=== PATIENT | male | born 1940 | race Caucasian/White ===

== ENCOUNTER 2025-04-26 19:09 | Inpatient (IN) | payer MEDICARE, SELFPAY ==
[2025-04-26 15:05] VITALS: BMI 23.8
[2025-04-26 15:17] VITALS: BP 130/79
[2025-04-26 15:18] VITALS: BP 130/79
--- NOTE | 2025-04-26 15:35 | ED.GENMED ---
History of Present Illness
<Hayden Mclean PA-C - Last Filed: 04/26/25 19:10>
General
Chief Complaint: Change in Mental Status
Source: patient, records, half-way and half-way records
Time Seen by Provider: 04/26/25 15:06
History of Present Illness
History of Present Illness:
84-year-old male with past medical history of AAA, routine monitoring, chronic ambulatory dysfunction, mild CKD presenting to the emergency department for evaluation of ecchymosis and increased pain to the right lower extremity that has been
gradually worsening for the last 1 to 2 weeks. Patient reportedly had outpatient vascular ultrasound which was negative for DVT as well as x-ray imaging which was negative for any fracture. Patient unable to elaborate on any further history
secondary to his known baseline mild dementia. 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
increasing difficulty doing so and noticed worsening ecchymosis along the lateral aspect of the foot/ankle and toes which is what prompted them to send him to the ER today. Based off patient's medication list it appears that he is on daily Plavix.
Past History
<Hayden Mclean PA-C - Last Filed: 04/26/25 19:10>
Past History
ED Past Medical History: Renal failure and Other (AAA)
Social History
Tobacco: Non-smoker
Alcohol: None
Drug: None
Personal:
Living: half-way
Review of Systems
<Hayden Mclean PA-C - Last Filed: 04/26/25 19:10>
Review of Systems
All Other Systems: ROS reviewed and negative except as documented in HPI and ROS
Phy Exam
<Hayden Mclean PA-C - Last Filed: 04/26/25 19:10>
Physical Exam
Physical Exam:
GENERAL: Alert , in no apparent distress, pleasant but somewhat confused, repetitive questioning
HEAD: Normocephalic atraumatic
EYE: conjunctiva clear
NECK: Supple
ENT: o/p clr, mmm.
CARDIAC: Regular rate and rhythm
LUNGS: Clear breath sounds bilaterally, no acute respiratory distress, no wheezes/rales/rhonchi
NEUROLOGICAL: Alert and oriented
SKIN: Warm and dry, ecchymosis to 2-5th toes extending into lateral foot and ankle. slightly dusky in appearance, cool to touch. LROM but unclear if this is chronic or new as patient unable to tell us
MUSCULOSKELETAL: Cool to touch. Cap refill ~ 3 seconds bilateral. Unable to palpate DP/PT pulses bilateral. Palpable popliteal and femoral pulses. I was able to appreciate weak DP/PT pulses with doppler
PSYCH: Normal and appropriate interaction.
Scores
<Hayden Mclean PA-C - Last Filed: 04/26/25 19:10>
Heart Failure Risk
Heart Failure Risk Score: Not Applicable
Heart Score for Chest Pain Patients
STEMI patient?: Not applicable
Withdrawal Assessment of Alcohol
Withdrawal Assessment Completed?: Not applicable
Course
<Hayden Mclean PA-C - Last Filed: 04/26/25 19:10>
Orders/Labs/Results
Orders:
Orders
04/26/25 15:30
Lower Ext Arterial & MING US [US Periph Art LOWER Ext w MING] Urgent
Comment:
Reason For Exam: LLE ecchymosis, cool to touch, increased pain
04/26/25 15:32
Type+Screen Urgent
Complete Blood Count/With Diff Urgent
Comprehensive Metabolic Panel Urgent
PTT Urgent
Prothrombin Time Urgent
04/26/25 18:08
Vascular Surgery Consult Routine
Consulting Provider: Adan Ochoa
Was physician already notified: Yes
04/26/25 18:09
Admit/Transfer Patient As Directed
Co-Sign Provider:
Level of Care: Inpatient admission
Assign to:: Medical/Surgical
Physician / Group: ajith ortiz
Diagnosis: RLE PAD
Reason for Hospitalization: RLE PAD
Expected length of stay greater than two midnights?: Yes
ELOS- Estimated Length of Stay in days: 2
I certify the patient meets the requirements for IP care: Yes
PRN Pain Medication Management As Directed
May give lesser potent ordered pain med per pt: Yes
preference::
Protocol:: Medication orders for pain may be administered in a
manner that supports deferring to patient preference
when the pt is:
- Requesting an ordered lesser potent pain medication.
Least to most potent pain medications are defined
as: acetaminophen < NSAID < tramadol < opioids
(morphine, oxycodone, hydromorphone).
- Requesting a lesser dose of the same medication IF
ORDERED.
- Requesting a less intrusive route of administration
if both routes are prescribed by the provider (PO <
IV).
04/26/25 18:11
Code Status As Directed
Resuscitation Status: Do not resuscitate
Reached after discussion with pt or family/Healthcare POA: Yes
DNR Bracelet Application ONCE
Abnormal Lab Results
04/26/25
15:32
RBC 3.89 L 10^6/uL
(4.70-6.10)
Hgb 11.1 L g/dL
(13.0-18.0)
Hct 34.2 L %
(39.0-52.0)
MCHC 32.5 L g/dL
(33.0-37.0)
Absolute Monos (auto) 0.7 H 10^3/uL
(0.1-0.6)
Monocytes % 9.9 H %
(1.7-9.3)
PT 14.8 H Sec
(11.4-14.6)
BUN 42 H mg/dl
(9-20)
Creatinine 1.5 H mg/dL
(0.7-1.3)
04/26/25 15:32
04/26/25 15:32
Vital Signs
Initial and Last Documented VS:
Initial Vital Signs
Pulse Ox
97
04/26/25 15:16
Last Documented Vital Signs
Temp Pulse Resp BP Pulse Ox
98.0 F 74 16 130/79 96
04/26/25 15:18 04/26/25 18:00 04/26/25 18:00 04/26/25 15:18 04/26/25 17:45
<Melvin Valera MD - Last Filed: 04/26/25 18:44>
Orders/Labs/Results
Orders:
Orders
04/26/25 15:30
Lower Ext Arterial & MING US [US Periph Art LOWER Ext w MING] Urgent
Comment:
Reason For Exam: LLE ecchymosis, cool to touch, increased pain
04/26/25 15:32
Type+Screen Urgent
Complete Blood Count/With Diff Urgent
Comprehensive Metabolic Panel Urgent
PTT Urgent
Prothrombin Time Urgent
04/26/25 18:08
Vascular Surgery Consult Routine
Consulting Provider: Adan Ochoa
Was physician already notified: Yes
04/26/25 18:09
Admit/Transfer Patient As Directed
Co-Sign Provider:
Level of Care: Inpatient admission
Assign to:: Medical/Surgical
Physician / Group: ajith ortiz
Diagnosis: RLE PAD
Reason for Hospitalization: RLE PAD
Expected length of stay greater than two midnights?: Yes
ELOS- Estimated Length of Stay in days: 2
I certify the patient meets the requirements for IP care: Yes
PRN Pain Medication Management As Directed
May give lesser potent ordered pain med per pt: Yes
preference::
Protocol:: Medication orders for pain may be administered in a
manner that supports deferring to patient preference
when the pt is:
- Requesting an ordered lesser potent pain medication.
Least to most potent pain medications are defined
as: acetaminophen < NSAID < tramadol < opioids
(morphine, oxycodone, hydromorphone).
- Requesting a lesser dose of the same medication IF
ORDERED.
- Requesting a less intrusive route of administration
if both routes are prescribed by the provider (PO <
IV).
04/26/25 18:11
Code Status As Directed
Resuscitation Status: Do not resuscitate
Reached after discussion with pt or family/Healthcare POA: Yes
DNR Bracelet Application ONCE
Abnormal Lab Results
04/26/25
15:32
RBC 3.89 L 10^6/uL
(4.70-6.10)
Hgb 11.1 L g/dL
(13.0-18.0)
Hct 34.2 L %
(39.0-52.0)
MCHC 32.5 L g/dL
(33.0-37.0)
Absolute Monos (auto) 0.7 H 10^3/uL
(0.1-0.6)
Monocytes % 9.9 H %
(1.7-9.3)
PT 14.8 H Sec
(11.4-14.6)
BUN 42 H mg/dl
(9-20)
Creatinine 1.5 H mg/dL
(0.7-1.3)
04/26/25 15:32
04/26/25 15:32
Vital Signs
Initial and Last Documented VS:
Initial Vital Signs
Pulse Ox
97
04/26/25 15:16
Last Documented Vital Signs
Temp Pulse Resp BP Pulse Ox
98.0 F 74 16 130/79 96
04/26/25 15:18 04/26/25 18:00 04/26/25 18:00 04/26/25 15:18 04/26/25 17:45
<Hayden Mclean PA-C - Last Filed: 04/26/25 19:10>
MDM/Problems Addressed
Differential Diagnosis Includes:
PAD/Arterial occlusion
PVD
DVT
Fracture
Cellulitis
Compartment syndrome
MDM/Problems Addressed:
84-year-old male presenting to the ER for evaluation of increased pain reported in the right lower extremity, now with worsening ecchymosis. Exam reveals cool to the touch bilateral lower extremities, difficult to palpate pulses but able to Doppler
weak DP and PT pulses bilaterally. Patient unable to give much history but half-way confirms there was no known trauma to the area and patient had negative venous ultrasound for DVT as well as x-rays for any fracture within the last week and a
half. Given the presentation will attempt to obtain arterial studies, vascular consult. Labs ordered. Disposition pending
<Hayden Mclean PA-C - Last Filed: 04/26/25 19:10>
*Radiology
Radiology exam reviewed: radiology read reviewed
*Pulse Oximetry
SaO2: 97
Oxygen Mode of Delivery: Room air
Patient hypoxic: no
*Critical Care Note
Total Time (30-74mins, 75-104mins- exclusive of procedures): Not Applicable
<Hayden Mclean PA-C - Last Filed: 04/26/25 19:10>
Patient Management
Discussion with other providers: Hospitalist and User Interface Developer
Escalation/DeEscalation of care consider admission/obs:
Case was reviewed with vascular team who is concerned for terminal cyanosis of the right lower extremity and that patient amputation for this. They will see the patient in consult, recommend admission to hospitalist team. I did discuss the case
with patient's son who is power of commonwealth attorney. Agrees with plan for admission and will discuss further options and treatment with hospitalist team as well as vascular team. Hospitalist team aware and accepts for admission.
ED Attending Note
<Hayden Mclean PA-C - Last Filed: 04/26/25 19:10>
-
Portions of this chart may have been created with voice recognition software.� Occasional wrong word or��sound alike� substitutions may have occurred due to the inherent limitations of voice recognition software.
<Melvin Valera MD - Last Filed: 04/26/25 18:44>
ED Attending Note
Patient seen and examined by attending physician: Yes
ED Attending Note:
Patient with history of dementia, presents to ED from half-way secondary to confusion along with discoloration noted of his right toes, which has been ongoing for the past 1 week. Upon arrival, patient is alert and awake, but pleasantly
confused. Patient does report seeing discoloration of his foot for 'long period of time'. Denies trauma. Denies loss of sensation or weakness. Denies recent illness.
Physical Exam
General: no apparent distress, not acutely ill. afebrile
Head: nc/at. eomi
Neck: supple. normal range of motion
Heart: s1/s2 regular rate and rhythm
Lungs: no acute respiratory distress. clear bilaterally
Abdomen: normal bowel sounds. not tender.
Neuro: alert and oriented x 2. no focal neurological deficits
Skin: right foot: Discoloration of 2nd, 3rd, and 4th toe noted along with coldness sensation. Dorsalis pedis pulses detected via Doppler, but faint.
Psychiatric: well kept. interactive and cooperative
Extremities: no edema. no calf tenderness.
Vascular surgery notified via [place] text. Lower extremity arterial study ordered. Patient will be admitted for further evaluation and treatment.
Discharge Plan
Departure
Patient Disposition: Admit
Date of Disposition: 04/26/25
Time of Disposition: 16:40
Presentation/result/management discussed w/ accepting /: Hospitalist
Discharge Problem:
PAOD (peripheral arterial occlusive disease)
Prescriptions:
No Action
atorvastatin [Lipitor] 40 mg Tablet
40 mg PO QPM
lidocaine 4 % Adhesive Patch,Medicated
1 patch TOPICAL DAILYPRN PRN (Reason: left knee)
polyethylene glycol 3350 [Miralax] 17 gram Powder In Packet
17 g PO DAILYPRN PRN (Reason: constipation)
loperamide 2 mg Tablet
2 mg PO Q6HPRN PRN (Reason: diarrhea)
clopidogrel [Plavix] 75 mg Tablet
75 mg PO DAILY
aspirin 81 mg Tablet,Delayed Release (Dr/Ec)
81 mg PO DAILY
acetaminophen [Tylenol Extra Strength] 500 mg Tablet
1,000 mg PO Q8HPRN PRN (Reason: mild pain)
pantoprazole [Protonix] 40 mg Tablet,Delayed Release (Dr/Ec)
40 mg PO DAILY
ergocalciferol (vitamin D2) 1,250 mcg (50,000 unit) Capsule
1,250 mcg PO TH
losartan-hydrochlorothiazide 50-12.5 mg Tablet
1 tab PO DAILY
doxycycline hyclate 20 mg Tablet
20 mg PO BID
Rx Instructions:
for 90 days until 06/26/25
loratadine 10 mg Tablet
10 mg PO DAILY
metoprolol tartrate 25 mg Tablet
12.5 mg PO BID
chlorhexidine gluconate [Peridex] 0.12 % Mouthwash
15 ml BUCCAL BID
ranolazine [Ranexa] 500 mg Tablet Extended Release 12 Hr
500 mg PO BID
Referrals:
Tramontana,Akash., DO [Family Provider, Internal Medicine]
Interventions
Interventions:
*Risk Screen - Suicide Last Done: 04/26/25 15:05
*General Assessment Last Done: 04/26/25 15:05
*Neglect/Abuse Screening Last Done: 04/26/25 15:05
*ED- Fall Risk Assessment Last Done: 04/26/25 15:05
*ED COVID-19 Vaccine History Last Done: 04/26/25 15:05
*ED Influenza Vaccine History Last Done: 04/26/25 15:05
ED- Neurological Assessment Last Done: 04/26/25 15:05
Discharge Date and Time
Print Language: GERMAN
[2025-04-26 15:46] LABS: Hematocrit 34.2 % (39.0-52.0); Hemoglobin 11.1 g/dL (13.0-18.0); Mean Corp Hgb Conc. 32.5 g/dL (33.0-37.0); Mean Corpuscular Volume 87.9 fL (80.0-94.0); Nucleated Red Blood Cells % 0 % (-); Platelet Count 167 10^3/uL (130-400); Red Cell Dist. Width 13.5 % (11.5-14.5)
[2025-04-26 15:52] LABS: INR 1.11; PT 14.8 Sec (11.4-14.6)
[2025-04-26 15:53] LABS: APTT 33.4 Sec (23.4-35.0)
[2025-04-26 15:58] LABS: ALT (SGPT) 15 U/L (0-50); AST (SGOT) 26 U/L (17-59); Albumin 4.1 g/dl (3.5-5.0); Alkaline Phosphatase 78 U/L (38-126); Blood Urea Nitrogen 42 mg/dl (9-20); Calcium 8.7 mg/dl (8.4-10.2); Carbon Dioxide 26 mmol/L (22-30); Chloride 107 mmol/L (98-107); Estimated Creatinine Clearance 31 ml/min; Glucose 96 mg/dl (70-99); Potassium 3.8 mmol/L (3.5-5.1); Sodium 141 mmol/L (135-145); Total Protein 7.5 g/dl (6.3-8.2); eGFR 45.34
--- NOTE | 2025-04-26 17:46 | HPS.HSE ---
Family Physician
-
Family Physician: Ramiro Ponce, DO
Chief Complaint
-
RLE pain/ecchymosis
History of Present Illness
84-year-old male with a past medical history of dementia, AAA, CAD, hypertension, GERD, CKD, chronic ambulatory dysfunction, and unsteady gait who was sent from [facility] for worsening right lower extremity pain and ecchymosis.
Patient states that his right lower extremity is chronically deformed, he denies trauma. He reports that he had an outpatient vascular ultrasound which was negative for DVT, and also had outpatient x-rays which was negative for fracture. Patient
normally ambulates with a walker. custodial sent him to the ER as he had increasing pain with ambulation and worsening ecchymosis along the lateral aspect of the right foot. Currently, he denies RLE pain at rest, denies chest pain, denies
shortness of breath. Denies nausea, denies vomiting. No constipation, no diarrhea. No fever.
Medical History
Past Medical History
Past Medical History: Reports Other
Additional Past Medical History:
AAA
CAD
Dementia
[place]/NSTEMI
Iron def anemia
Unstable gait
Essential hypertension
Gastroesophageal reflux disease
Chronic ambulatory dysfunction
Chronic kidney disease
Past Surgical History: Reports Other
Additional Past Surgical History:
Cyst removal on leg
Social History
Tobacco: Non-smoker
Alcohol: None
Drug: None
Personal:
Living: Penitentiary
Family History
Family History: Not pertinent
Allergies / Home Medications
Allergies reflects when Allergies were last updated in [employer].
Home Medications with original date entered in [employer]
Allergy/Medication List:
Allergies
Allergy/AdvReac Type Severity Reaction Status Date / Time
clarithromycin (From Biaxin) Allergy Unknown Verified 04/26/25 15:37
Home Medications Table - record
�Medication �Instructions �Recorded �Confirmed
acetaminophen 500 mg tablet 1,000 mg PO Q8HPRN PRN mild pain 04/26/25 04/26/25
(Tylenol Extra Strength)
aspirin 81 mg tablet,delayed 81 mg PO DAILY 04/26/25 04/26/25
release
atorvastatin 40 mg tablet (Lipitor) 40 mg PO QPM 04/26/25 04/26/25
chlorhexidine gluconate 0.12 % 15 ml buccal BID 04/26/25 04/26/25
mouthwash (Peridex)
clopidogrel 75 mg tablet (Plavix) 75 mg PO DAILY 04/26/25 04/26/25
doxycycline hyclate 20 mg tablet 20 mg PO BID 04/26/25 04/26/25
ergocalciferol (vitamin D2) 1,250 1,250 mcg PO TH 04/26/25 04/26/25
mcg (50,000 unit) capsule
lidocaine 4 % topical patch 1 patch topical DAILYPRN PRN left 04/26/25 04/26/25
knee
loperamide 2 mg tablet 2 mg PO Q6HPRN PRN diarrhea 04/26/25 04/26/25
loratadine 10 mg tablet 10 mg PO DAILY 04/26/25 04/26/25
losartan 50 mg-hydrochlorothiazide 1 tab PO DAILY 04/26/25 04/26/25
12.5 mg tablet
metoprolol tartrate 25 mg tablet 12.5 mg PO BID 04/26/25 04/26/25
pantoprazole 40 mg tablet,delayed 40 mg PO DAILY 04/26/25 04/26/25
release (Protonix)
polyethylene glycol 3350 17 gram 17 g PO DAILYPRN PRN constipation 04/26/25 04/26/25
oral powder packet (Miralax)
ranolazine 500 mg tablet,extended 500 mg PO BID 04/26/25 04/26/25
release,12 hr
Review of Systems
-
Unable to obtain full review of systems at this time due to: Dementia
Physical Exam
Vital Signs
Vital Signs
Temp Pulse Resp BP Pulse Ox
98.0 F 69 17 130/79 96
04/26/25 15:18 04/26/25 17:15 04/26/25 17:15 04/26/25 15:18 04/26/25 17:15
Physical Exam
General: No Apparent Distress
HEENT: NormoCephalic, Anicteric and Moist mucous membranes
Respiratory: Clear
Cardiac: S1/S2 and Regular Rhythm
GI: Soft, Non Tender, Non Distended and Normal Bowel Sounds
Musculoskeletal: Other (Right lower extremity shortened and externally rotated, ecchymosis of right toes and lateral foot, severely diminished DP/PT pulses bilateral)
Psych: Calm
Laboratory Results
-
04/26/25 15:32
04/26/25 15:32
Laboratory Results
PT 14.8 Sec (11.4-14.6) H 04/26/25 15:32
INR 1.11 04/26/25 15:32
APTT 33.4 Sec (23.4-35.0) 04/26/25 15:32
Total Bilirubin 1.1 mg/dl (0.2-1.3) 04/26/25 15:32
AST 26 U/L (17-59) 04/26/25 15:32
ALT 15 U/L (0-50) 04/26/25 15:32
Alkaline Phosphatase 78 U/L (38-126) 04/26/25 15:32
Impression/Plan
-
HPI: 84-year-old male with a past medical history of dementia, AAA, CAD, hypertension, GERD, CKD, chronic ambulatory dysfunction, and unsteady gait who was sent from [facility] for worsening right lower extremity pain and ecchymosis.
Patient states that his right lower extremity is chronically deformed, he denies trauma. He reports that he had an outpatient vascular ultrasound which was negative for DVT, and also had outpatient x-rays which was negative for fracture. Patient
normally ambulates with a walker. custodial sent him to the ER as he had increasing pain with ambulation and worsening ecchymosis along the lateral aspect of the right foot. Currently, he denies RLE pain at rest, denies chest pain, denies
shortness of breath. Denies nausea, denies vomiting. No constipation, no diarrhea. No fever.
#Right lower extremity pain with ambulation
#Probable right lower extremity PVD with arterial compromise
Reported outpt dopplers/XR neg
Check ABIs, consult vascular surgery
Continue aspirin, Plavix, statin
#Stage IIIb chronic kidney disease
Creatinine at baseline, trend creatinine, no nephrotoxic drugs/NSAIDs
#CAD
#History of [place]
Not a candidate for PCI per son
Continue aspirin, Plavix, statin, metoprolol, Ranexa
#Chronic iron deficiency anemia
Monitor hemoglobin
#AAA
Not a candidate for surgery per son
Continue monitoring
#Essential hypertension
Continue losartan�hydrochlorothiazide, metoprolol
#GERD
Continue PPI
#Hyperlipidemia
Continue statin
DVT prophylaxis�subcu Lovenox
DNR confirmed with son upon admission
Total time spent to see the patient on the floor, examine the patient, review data and lab results, discuss treatment plan with patient, nursing staff around 76 minutes.
[2025-04-26 21:24] VITALS: BP 135/86; BMI 23.7
[2025-04-26] MEDS: LOVENOX 40 MG SC (21:57)
[2025-04-26] MEDS: PERIDEX 0.12% ORAL RINSE 15 ML PO (21:58)
[2025-04-26] MEDS: LOPRESSOR 12.5 MG PO (21:58)
[2025-04-26] MEDS: RANEXA EXTENDED RELEASE 500 MG PO (21:58)
[2025-04-26 23:10] VITALS: BP 126/75
[2025-04-27 07:27] LABS: Hematocrit 32.7 % (39.0-52.0); Hemoglobin 10.5 g/dL (13.0-18.0); Mean Corp Hgb Conc. 32.1 g/dL (33.0-37.0); Mean Corpuscular Volume 91.1 fL (80.0-94.0); Platelet Count 153 10^3/uL (130-400); Red Cell Dist. Width 13.5 % (11.5-14.5)
[2025-04-27 07:31] VITALS: BP 119/70
[2025-04-27 07:52] LABS: Blood Urea Nitrogen 38 mg/dl (9-20); Calcium 8.6 mg/dl (8.4-10.2); Carbon Dioxide 29 mmol/L (22-30); Chloride 107 mmol/L (98-107); Estimated Creatinine Clearance 31 ml/min; Glucose 97 mg/dl (70-99); Magnesium 1.4 mg/dl (1.6-2.3); Potassium 4.2 mmol/L (3.5-5.1); Sodium 142 mmol/L (135-145); eGFR 45.34
--- NOTE | 2025-04-27 08:43 | W.PN.HOSP.TC ---
Today's Communication/Plan
-
Discharge to short-term rehab when insurance authorization has been obtained
Assessment / Plan
Assessment / Plan
HPI: 84-year-old male with a past medical history of dementia, AAA, CAD, hypertension, GERD, CKD, chronic ambulatory dysfunction, and unsteady gait who was sent from [facility] for worsening right lower extremity pain and ecchymosis.
Patient states that his right lower extremity is chronically deformed, he denies trauma. He reports that he had an outpatient vascular ultrasound which was negative for DVT, and also had outpatient x-rays which was negative for fracture. Patient
normally ambulates with a walker. jail sent him to the ER as he had increasing pain with ambulation and worsening ecchymosis along the lateral aspect of the right foot. Currently, he denies RLE pain at rest, denies chest pain, denies
shortness of breath. Denies nausea, denies vomiting. No constipation, no diarrhea. No fever.
#Right lower extremity pain with ambulation
#Probable right lower extremity PVD with arterial compromise
Reported outpt dopplers/XR neg
ABIs negative for arterial insufficiency, cancel vascular surgery consult
Continue aspirin, Plavix, statin
Change Tylenol to 1 g 3 times daily scheduled, trial of tramadol 50 mg twice daily scheduled
Discharge to short-term rehab when insurance authorization has been obtained
#Mild dementia, unclear type
Supportive care
#Stage IIIb chronic kidney disease
Creatinine at baseline, trend creatinine, no nephrotoxic drugs/NSAIDs
#CAD
#History of [place]
Not a candidate for PCI per son
Continue aspirin, Plavix, statin, metoprolol, Ranexa
#Chronic iron deficiency anemia
Monitor hemoglobin
#AAA
Not a candidate for surgery per son
Continue monitoring
#Essential hypertension
Continue losartan�hydrochlorothiazide, metoprolol
#GERD
Continue PPI
#Hyperlipidemia
Continue statin
DVT prophylaxis�subcu Lovenox
DNR confirmed with son upon admission
Updated son on phone 04/27, all questions answered
Total time spent to see the patient on the floor, examine the patient, review data and lab results, discuss treatment plan with patient, nursing staff around 40 minutes.
Physical Exam
General: No Apparent Distress
HEENT: NormoCephalic, Anicteric and Moist mucous membranes
Respiratory: Clear
Cardiac: S1/S2 and Regular Rhythm
GI: Soft, Non Tender, Non Distended and Normal Bowel Sounds
Musculoskeletal: Other (Right lower extremity shortened and externally rotated, ecchymosis of right toes and lateral foot, severely diminished DP/PT pulses bilateral)
Psych: Calm
Anticipated Discharge: Today
Subjective/Interval History
-
Date of Service: April 27, 2025
No acute events. Patient has intermittent right leg pain. Denies nausea, denies vomiting. No fever.
Objective Data
-
Labs:
Laboratory Results
04/27/25
07:04
WBC 6.0
Hgb 10.5 L
Hct 32.7 L
Plt Count 153
Sodium 142
Potassium 4.2
Chloride 107
Carbon Dioxide 29
BUN 38 H
Creatinine 1.5 H
Glucose 97
Calcium 8.6
Vital Signs:
Vital Signs
Temp Pulse Resp BP Pulse Ox
98 F 71 14 119/70 97
04/27/25 07:31 04/27/25 07:31 04/27/25 07:31 04/27/25 07:31 04/27/25 07:31
[2025-04-27] MEDS: ORETIC 12.5 MG PO (09:08)
[2025-04-27] MEDS: CLARITIN 10 MG PO (09:08)
[2025-04-27] MEDS: PROTONIX 40 MG PO (09:08)
[2025-04-27] MEDS: LOPRESSOR 12.5 MG PO ×2 (09:08→22:11)
[2025-04-27] MEDS: PERIDEX 0.12% ORAL RINSE 15 ML PO ×2 (09:09→22:08)
[2025-04-27] MEDS: RANEXA EXTENDED RELEASE 500 MG PO ×2 (09:09→22:08)
[2025-04-27] MEDS: COZAAR 50 MG PO (09:09)
[2025-04-27] MEDS: PLAVIX 75 MG PO (09:09)
[2025-04-27] MEDS: LIDOCAINE 4% PATCH 1 PATCH TOPICAL (09:09)
[2025-04-27] MEDS: ASPIR LOW (ENTERIC COATED) 81 MG PO (09:09)
[2025-04-27] MEDS: MAGNESIUM SULFATE 50 IV (09:10)
[2025-04-27 09:15] VITALS: BP 121/77; PULSE 73
--- NOTE | 2025-04-27 10:51 | WOUNDNOTE ---
[facility] RN note: Patient admitted with RLE PAD. Patient lives at [facility].
See H&P for complete history.
PMH: dementia, AAA, CAD, HTN, CKD, ambulation dysfunction, unsteady gait, R foot deformity.
Wound Location and type/assessment: Patient admitted with: Bruising R toes/forefoot, R distal hammer toe scabbed abrasion/callus. R lateral ankle bruise/contusion vs hematoma. Area slightly raised, firm and tender. Trace R pedal and ankle edema. R
Pedal pulses heard via portable Doppler. L pedal pulse palpated. Bilateral buttocks blanchable red. Upper sacrum/lower back with faint bruise.
Appetite: good. Patient thin.
Pressure redistribution devices in place: [employer] Accum[employer]. Patient stood with walker and 1-2 assist. JENNIFER Xiao assisted with patient standing during sacral/buttocks skin assessment.
Plan: R 2nd toe dressing changed. Air chair cushion given. Instructed patient to follow up with hospice music therapy.
Will confirm orders with hospitalist. Arterial ultrasound on order. Vascular on consult.
Updated care plan, will sign off, call if needed.
Note to case management of equipment requested for discharge:
Recommend follow up at wound care center upon discharge if needed.
--- NOTE | 2025-04-27 11:00 | WOUNDNOTE ---
R 2ND TOE TIP
--- NOTE | 2025-04-27 11:00 | WOUNDNOTE ---
RLE/ANKLE (LATERAL)
--- NOTE | 2025-04-27 11:00 | WOUNDNOTE ---
RLE (ANTERIOR LATERAL)
--- NOTE | 2025-04-27 11:31 | WOUNDNOTE ---
R FOOT/RLE (MEDIAL)
--- NOTE | 2025-04-27 13:33 | CM ---
Addendum entered by Jules Hernandez 04/27/25 15:59:
CM called [facility] to check on the status of an auth and was told an auth still pending.
Addendum entered by Jules Hernandez 04/27/25 15:42:
Please note that per pt's son pt's on Medicare system and insurance is: 1940. Per son, he is trying for years to fix it. Insurance will not give any information without 1940.
On our system pt's is 1940
Original Note:
CM following re: discharge planning.
Reviewed pt's chart, met with pt.
Pt reports he lives at [facility] personal care/technician terminal and repeater, care, uses a wheelchair mostly, has a walker. Pt reports he has supportive son.
PT and OT evaluations noted- SNF level of care recommended. Pt is aware, expressed his agreement and requested [facility]. A referral to [facility] made. Awaiting for determination.
CM spoke to [facility] sales account director and she confirmed that pt is accepted for admission to [facility] and an auth requested with accepting MD Dr. Ha Kay .
CM initiated an auth from [facility] serving [facility], reference number [id number]. Requested pt's clinical faxed to [facility] [phone].
D/C plan: [facility]. Awaiting for an auth.
[2025-04-27] MEDS: ULTRAM 50 MG PO ×2 (14:09→22:07)
[2025-04-27 15:41] VITALS: BP 116/76
[2025-04-27 15:53] LABS: COVID-19 Antigen Negative (Negative)
[2025-04-27] MEDS: LIPITOR 40 MG PO (17:13)
[2025-04-27] MEDS: LOVENOX 40 MG SC (17:14)
[2025-04-27] MEDS: REMOVE LIDOCAINE PATCH 1 PATCH REMOVE (22:07)
[2025-04-27 23:25] VITALS: BP 108/71
[2025-04-28 07:00] VITALS: BP 85/52
[2025-04-28 08:26] VITALS: BP 96/66
--- NOTE | 2025-04-28 09:00 | W.PN.HOSP.TC ---
Today's Communication/Plan
-
Discharge today
Assessment / Plan
Assessment / Plan
HPI: 84-year-old male with a past medical history of dementia, AAA, CAD, hypertension, GERD, CKD, chronic ambulatory dysfunction, and unsteady gait who was sent from [facility] for worsening right lower extremity pain and ecchymosis.
Patient states that his right lower extremity is chronically deformed, he denies trauma. He reports that he had an outpatient vascular ultrasound which was negative for DVT, and also had outpatient x-rays which was negative for fracture. Patient
normally ambulates with a walker. alf sent him to the ER as he had increasing pain with ambulation and worsening ecchymosis along the lateral aspect of the right foot. Currently, he denies RLE pain at rest, denies chest pain, denies
shortness of breath. Denies nausea, denies vomiting. No constipation, no diarrhea. No fever.
#Right lower extremity pain with ambulation
#Probable right lower extremity PVD with arterial compromise
Reported outpt dopplers/XR neg
ABIs negative for arterial insufficiency, cancel vascular surgery consult
Continue aspirin, Plavix, statin
Change Tylenol to 1 g 3 times daily scheduled, trial of tramadol 50 mg twice daily scheduled
Discharge to short-term rehab when insurance authorization has been obtained
#Mild dementia, unclear type
Supportive care
#Stage IIIb chronic kidney disease
Creatinine at baseline, trend creatinine, no nephrotoxic drugs/NSAIDs
#CAD
#History of HI
Not a candidate for PCI per son
Continue aspirin, Plavix, statin, metoprolol, Ranexa
#Chronic iron deficiency anemia
Monitor hemoglobin
#AAA
Not a candidate for surgery per son
Continue monitoring
#Essential hypertension
Blood pressure 96/66 today, suspect secondary to adding tramadol 50 mg twice daily scheduled
Recommend stopping losartan�hydrochlorothiazide, may continue metoprolol
#GERD
Continue PPI
#Hyperlipidemia
Continue statin
DVT prophylaxis�subcu Lovenox
DNR confirmed with son upon admission
Updated son on phone 04/27, all questions answered
Physical Exam
General: No Apparent Distress
HEENT: NormoCephalic, Anicteric and Moist mucous membranes
Respiratory: Clear
Cardiac: S1/S2 and Regular Rhythm
GI: Soft, Non Tender, Non Distended and Normal Bowel Sounds
Musculoskeletal: Other (Right lower extremity shortened and externally rotated, ecchymosis of right toes and lateral foot, severely diminished DP/PT pulses bilateral)
Psych: Calm
Anticipated Discharge: Today
Subjective/Interval History
-
Date of Service: April 28, 2025
Patient denies chest pain, denies shortness of breath. No lightheadedness, no dizziness. He has chronic right leg pain. No fever, no vomiting.
Objective Data
-
Vital Signs:
Vital Signs
Temp Pulse Resp BP Pulse Ox
97.4 F 60 16 96/66 93
04/28/25 07:00 04/28/25 07:00 04/28/25 07:00 04/28/25 08:26 04/28/25 07:00
I&O
04/27/25 04/28/25 04/29/25
06:59 06:59 06:59
Intake Total 660 / 660
Output Total 200 / 200
Balance 460 / 460
[2025-04-28] MEDS: ULTRAM 50 MG PO (09:26)
[2025-04-28] MEDS: PROTONIX 40 MG PO (09:26)
[2025-04-28] MEDS: ASPIR LOW (ENTERIC COATED) 81 MG PO (09:26)
[2025-04-28] MEDS: CLARITIN 10 MG PO (09:27)
[2025-04-28] MEDS: LIDOCAINE 4% PATCH 1 PATCH TOPICAL (09:27)
[2025-04-28] MEDS: RANEXA EXTENDED RELEASE 500 MG PO (09:27)
[2025-04-28] MEDS: COZAAR PO (09:28)
[2025-04-28] MEDS: PLAVIX 75 MG PO (09:28)
[2025-04-28] MEDS: PERIDEX 0.12% ORAL RINSE 15 ML PO (09:28)
[2025-04-28] MEDS: LOPRESSOR PO (09:28)
[2025-04-28] MEDS: ORETIC PO (09:29)
--- NOTE | 2025-04-28 11:08 | CM ---
Addendum entered by Lakeisha Honeycutt 04/28/25 11:15:
gave [facility] liaison all auth info & transport time
Original Note:
Patient seen at bedside
Discharge today
CM called [facility] regarding pending Auth reference #[id number]
spoke with Polina who stated authorization approved for [facility]
APPROVED AUTH #: [id number]
Ramirez Mcdonald casework manager
start 04/28/25, NRD 06/01/25
fax updates to [phone]
COVID test negative 04/27
spoke with Princess from [facility] can accept today after 3pm
Spoke with miguel LEMON updated - IMM explained & placed in chart
PLAN: [facility]
REPORT #: [phone]
FAX #: [phone]
transportation forms on chart, 4pm set today
--- NOTE | 2025-04-28 13:56 | W.DCSUMMARY ---
Discharge Summary
Discharge Data
Date of Admission: 04/26/25
Date of Discharge: 04/28/25
-
Pending Results: No
Hospital Course
Discharge diagnosis:
Acute on chronic right lower extremity pain with ambulation
Ecchymosis of right ankle and right toes
Mild dementia, unclear type
Stage IIIb chronic kidney disease
Coronary artery disease
History of myocardial infarction
Chronic iron deficiency anemia
Abdominal aortic aneurysm
History of essential hypertension
Gastroesophageal reflux disease
Hyperlipidemia
MING:
No evidence of bilateral lower extremity arterial insufficiency. Ankle and toe brachial indices are within normal limits bilaterally. Multiphasic waveforms throughout bilateral lower extremity arteries with no velocity elevation to suggest any
stenoses. Urgent study findings communicated to ordering ER provider Hayden Mclean via [employer] [facility] [employer] on 04/26/25 at 4:27pm.
Hospital course:
84-year-old male with a past medical history of dementia, AAA, CAD, hypertension, GERD, CKD, chronic ambulatory dysfunction, and unsteady gait who was sent from [facility] for worsening right lower extremity pain and ecchymosis.
Patient's son reports that he had an outpatient x-ray and right lower extremity Dopplers which were negative for DVT and fracture. Patient had an MING, which was negative for arterial insufficiency. He was seen in conjunction with wound care. It
is suspected that he had trauma to his right foot and right ankle. He has dementia, and cannot recall any trauma. He does have acute on chronic right lower extremity pain with walking. His Tylenol was changed from as needed to 1000 mg 3 times
daily scheduled, and he was started on tramadol 50 mg twice a day. His blood pressure was on the soft side. His losartan and hydrochlorothiazide were discontinued. He is medically stable for discharge. He needs to follow-up with his PCP in 1
week.
Disposition: Short-term rehab
Discharge planning: Required 33 minutes
Discharge Plan
-
Patient Disposition: Long-Term/SNF
Discharge Diagnosis/Procedures: Ecchymosis of right ankle/right toes, arterial insufficiency ruled out
Condition: Good
Diet: Regular
Activity: As tolerated
Activity Restrictions/Additional Instructions:
Your blood pressure in the hospital was on the lower side. Recommend you stop your blood pressure medications.
Follow-up with your primary care doctor in 1 week.
Wound Care Instructions
R distal 2nd toe scabbed ulcer/callus-clean with saline or soap and water, no sting skin prep (allow to dry), cover with gauze pad or foam pad, change daily.
Turning schedule
Elevate heels off bed with pillow and air chair cushion
Pressure redistributing chair cushion (i.e. Air chair cushion).
Follow up with marketing services vice president.
Follow up at wound care center if needed, call for an appointment.
Referrals:
Ramiro Ponce DO [Family Provider, Internal Medicine] - in one week
Prescriptions:
New
sennosides-docusate sodium [Senna Plus] 8.6-50 mg Tablet
2 tab PO HS Qty: 0 0RF
tramadol 50 mg Tablet
50 mg PO BID Qty: 10 0RF
Continued
atorvastatin [Lipitor] 40 mg Tablet
40 mg PO QPM
lidocaine 4 % Adhesive Patch,Medicated
1 patch TOPICAL DAILYPRN PRN (Reason: left knee)
polyethylene glycol 3350 [Miralax] 17 gram Powder In Packet
17 g PO DAILYPRN PRN (Reason: constipation)
loperamide 2 mg Tablet
2 mg PO Q6HPRN PRN (Reason: diarrhea)
clopidogrel [Plavix] 75 mg Tablet
75 mg PO DAILY
aspirin 81 mg Tablet,Delayed Release (Dr/Ec)
81 mg PO DAILY
pantoprazole [Protonix] 40 mg Tablet,Delayed Release (Dr/Ec)
40 mg PO DAILY
ergocalciferol (vitamin D2) 1,250 mcg (50,000 unit) Capsule
1,250 mcg PO TH
doxycycline hyclate 20 mg Tablet
20 mg PO BID
Rx Instructions:
for 90 days until 06/26/25
loratadine 10 mg Tablet
10 mg PO DAILY
metoprolol tartrate 25 mg Tablet
12.5 mg PO BID
chlorhexidine gluconate [Peridex] 0.12 % Mouthwash
15 ml BUCCAL BID
ranolazine 500 mg Tablet Extended Release 12 Hr
500 mg PO BID
Changed
acetaminophen [Tylenol Extra Strength] 500 mg Tablet
1,000 mg PO TID Qty: 0 0RF
Discontinued
losartan-hydrochlorothiazide 50-12.5 mg Tablet
1 tab PO DAILY
Discharge Orders:
Discharge Patient (As Directed); Ordered 04/28/25
Ordered By: Kali Corea
Discharge Date and Time
Print Language: SAMI
[2025-04-28 15:18] VITALS: BP 102/68
== END 2025-04-28 15:19 | DRG 605 ==
LOC: 3 WEST ACU 19:09
PROVIDERS: Physician Assistant Medical; ADMITTING PHYSICIAN Family Medicine; EMERGENCY PHYSICIAN Emergency Medicine; FAMILY PHYSICIAN Internal Medicine
DX: S90.01XA Contusion of right ankle, initial encounter (principal); S90.121A Contusion of right lesser toe(s) without damage to nail, initial encounter; X58.XXXA Exposure to other specified factors, initial encounter; M79.604 Pain in right leg; F03.A0 Unspecified dementia, mild, without behavioral disturbance, psychotic disturbance, mood disturbance, and anxiety; I12.9 Hypertensive chronic kidney disease with stage 1 through stage 4 chronic kidney disease, or unspecified chronic kidney disease; N18.32 Chronic kidney disease, stage 3b; K21.9 Gastro-esophageal reflux disease without esophagitis; I25.10 Atherosclerotic heart disease of native coronary artery without angina pectoris; D50.9 Iron deficiency anemia, unspecified; I71.40 Abdominal aortic aneurysm, without rupture, unspecified; E78.5 Hyperlipidemia, unspecified; K59.00 Constipation, unspecified; Z66 Do not resuscitate; I25.2 Old myocardial infarction; Z11.52 Encounter for screening for COVID-19; Z79.02 Long term (current) use of antithrombotics/antiplatelets; Z79.899 Other long term (current) drug therapy
CPT/HCPCS: 80048; 80053; 83735; 85025; 85027; 85610; 85730; 86850; 86900; 86901; 87811; 93922; 93925; 97163; 99285